=== PATIENT | female | born 1940 ===

== ENCOUNTER 2019-04-04 11:26 | Outpatient (CLI) | payer OTHER | END 2019-04-04 11:30 | disposition home or self-care (01) | LOC: RAD 11:26 | DX: J20.8 Acute bronchitis due to other specified organisms (principal); I13.10 Hypertensive heart and chronic kidney disease without heart failure, with stage 1 through stage 4 chronic kidney disease, or unspecified chronic kidney disease; E78.1 Pure hyperglyceridemia; N18.3 Chronic kidney disease, stage 3 (moderate); F51.12 Insufficient sleep syndrome; G63 Polyneuropathy in diseases classified elsewhere; H81.13 Benign paroxysmal vertigo, bilateral; R73.01 Impaired fasting glucose ==

== ENCOUNTER 2019-07-19 07:28 | Emergency (ER) | payer OTHER ==
[~2019-07-19] VITALS: Ht 157.5 cm; Wt 65.8 kg
[2019-07-19] MEDS ORDERED: SIMVASTATIN5 MG (07:33)
[2019-07-19] MEDS ORDERED: ENALAPRIL MALEAT5 MG (07:33)
[2019-07-19] MEDS ORDERED: MOBIC15 MG PO (09:13)
== END 2019-07-19 10:54 | disposition home or self-care (01) ==
LOC: ER 07:28
DX: S43.014A Anterior dislocation of right humerus, initial encounter (principal); X50.0XXA Overexertion from strenuous movement or load, initial encounter; Y93.89 Activity, other specified; Y92.098 Other place in other non-institutional residence as the place of occurrence of the external cause; Y99.8 Other external cause status

== ENCOUNTER 2023-08-18 09:34 | Outpatient (CLI) | payer OTHER ==
[~2023-08-18 09:34] MED LIST: ENALAPRIL MALEAT5 MG; MOBIC15 MG PO; SIMVASTATIN5 MG
== END 2023-08-18 09:38 | disposition home or self-care (01) ==
LOC: RAD 09:34
PROVIDERS: ATTEND Surgery Surgery of the Hand
DX: M54.2 Cervicalgia (principal); M19.049 Primary osteoarthritis, unspecified hand; M19.031 Primary osteoarthritis, right wrist; M19.032 Primary osteoarthritis, left wrist